=== PATIENT | female | born 1965 | race African-American/Black ===

== ENCOUNTER 2018-12-29 12:56 | Emergency (ER) | payer MEDICAID ==
[~2018-12-29] VITALS: Ht 154.9 cm; Wt 73.0 kg
[~2018-12-29 12:56] MED LIST: MULTIVITAMINS
[2018-12-29] MEDS ORDERED: BACITRACIN ZINC OINT UDPKT TOP ONE (16:30)
[2018-12-29] MEDS ORDERED: LIDOCAINE 1%/EPI 1:100,000 10 ML VIAL IJ ONE (16:30)
[2018-12-29] MEDS ORDERED: TETANUS, DIPHTHERIA, PERTUSSIS VAC/PF 0.5ML (>7YR OLD) IM ONE (16:30)
[2018-12-29] MEDS ORDERED: HYDROCODONE/ACETAMINOPHEN 5/325MG TABLET PO ONE (16:30)
[2018-12-29 16:56] VITALS: BP 142/92
[2018-12-29] MEDS ORDERED: LIDOCAINE HCL/EPINEPHRINE 1%-EPI 1:100,000 20 ML VIAL IJ NR (17:01)
== END 2018-12-29 17:50 | disposition home or self-care (01) ==
LOC: ER 12:56
DX: L02.411 Cutaneous abscess of right axilla (principal); F17.200 Nicotine dependence, unspecified, uncomplicated; Z90.49 Acquired absence of other specified parts of digestive tract
CPT/HCPCS: 10060; 99283; J3490; Z7610; 90715